=== PATIENT | female | born 1960 | race African-American/Black ===

== ENCOUNTER 2017-04-10 09:24 | Emergency (ER) | payer OTHER ==
[~2017-04-10] VITALS: Ht 162.6 cm; Wt 75.0 kg
[2017-04-10 09:44] VITALS: BP 111/67
== END 2017-04-10 16:36 | disposition left against medical advice (07) ==
LOC: ER 12:58
DX: Z53.21 Procedure and treatment not carried out due to patient leaving prior to being seen by health care provider (principal)